=== PATIENT | male | born 1970 | race Caucasian/White ===

== ENCOUNTER → 2025-07-15 | Outpatient (CLI) | payer OTHER ==
--- NOTE | 2025-07-16 08:46 | HMCIMG ---
EXAM: CT Cardiac calcium scoring. CLINICAL HISTORY: Screening. TECHNIQUE: Thin collimated axial CT cardiac images were obtained. A CT scan is done according to ALARA (As Low As Reasonably Achievable). CONTRAST: None. COMPARISON: None provided. FINDINGS: Calcium Score: VESSEL Number of lesions Volume mm3 Equi. Mass/mg Calcium score LM 1 1.0 - 1.3 LAD 2 28.0 - 40.1 LCX 2 28.0 - 35.3 RCA 0 0.0 - 0.0 Total 5 57.0 - 76.7 IMPRESSION: The total calcium score is 76.7. 82th percentile. /[place]
== END ==
LOC: RAH 12:40
PROVIDERS: ATTEND Nurse Practitioner Family
DX: Z13.6 Encounter for screening for cardiovascular disorders (principal)
CPT/HCPCS: 75571